=== PATIENT | male | born 1960 | race Caucasian/White ===

== ENCOUNTER 2018-02-27 23:37 | Emergency (ER) | payer MEDICAID ==
[2018-02-28] MEDS: FAMOTIDINE 20 MG INJ IV (01:12)
[2018-02-28 01:13] LABS: ADD MAN DIFF? NO
[2018-02-28] MEDS: SOD CHLORIDE 0.9% 1,000 ML IV (01:13)
[2018-02-28] MEDS: ONDANSETRON 4 MG INJ IV (01:13)
[2018-02-28] MEDS: morphine 4 MG/ML VIAL IV (01:13)
[2018-02-28 01:17] LABS: WHITE BLOOD COUNT 12.5 10^3/ul (4.8-10.8)
[2018-02-28 01:17] LABS: BASOPHILS % 0.2 % (0.0-2.0); HEMOGLOBIN 13.2 g/dl (14.0-18.0); LYMPHOCYTES # 1.7 10^3/ul (0.8-2.9); LYMPHOCYTES % 13.3 % (15.0-51.0); MEAN CORPUSCULAR HEMOGLOBIN 33.4 pg (29.0-33.0); MEAN CORPUSCULAR VOLUME 101.3 fl (82.0-101.0); MEAN PLATELET VOLUME 11.6 fl (7.4-10.4); MONOCYTE # 0.7 10^3/ul (0.3-0.9); MONOCYTES % 5.4 % (0.0-11.0); NEUTROPHIL # 10.1 10^3/ul (1.6-7.5); NEUTROPHILS % 80.6 % (39.0-77.0); PLATELET COUNT 127 10^3/UL (140-415); RED BLOOD COUNT 3.95 10^6/ul (4.70-6.10); RED CELL DISTRIBUTION WIDTH 13.1 % (11.5-14.5)
[2018-02-28] MEDS: THIAMINE 100 MG TAB PO (01:29)
[2018-02-28] MEDS: FOLIC ACID 1 MG TAB PO (01:29)
[2018-02-28 01:53] LABS: ALANINE AMINOTRANSFERASE 76 IU/L (13-69); ALBUMIN 4.7 g/dl (3.3-4.9); ALBUMIN/GLOBULIN RATIO 1.17; ALKALINE PHOSPHATASE 98 IU/L (42-121); ANION GAP 29 (8-16); ASPARTATE AMINO TRANSFERASE 67 IU/L (15-46); BILIRUBIN,INDIRECT 0.9 mg/dl (0-1.1); BILIRUBIN,TOTAL 0.9 mg/dl (0.2-1.3); BLOOD UREA NITROGEN 28 mg/dl (7-20); CALCIUM 9.2 mg/dl (8.4-10.2); CARBON DIOXIDE 17 mmol/L (21-31); CHLORIDE 97 mmol/L (97-110); CREATININE 1.08 mg/dl (0.61-1.24); GLUCOSE 337 mg/dl (70-220); LIPASE 315 U/L (23-300); POTASSIUM 5.5 mmol/L (3.5-5.1); SODIUM 137 mmol/L (135-144); TOTAL PROTEIN 8.7 g/dl (6.1-8.1)
[2018-02-28 02:37] LABS: MODE ROOM AIR; MetHgb Venous 0.3 %; Sample Type Blood venous; Site VENOUS LINE; URINE BLOOD (Dip) POC 2+ (NEGATIVE); URINE KETONES (Dip) POC 4+ (NEGATIVE); URINE LEUKOCYTE EST (Dip) POC Negative (NEGATIVE); URINE NITRITE (Dip) POC Negative (NEGATIVE); URINE TOTAL PROTEIN POC 3+ (NEGATIVE); Venous COHb 0.4 %; Venous Fraction OxyHgb 54.3 %; Venous Oxygen Sat 54.7 mmHG (55.0-75.0); Venous Total Hemglobin 13.6 g/dl
[2018-02-28 02:37] LABS: URINE PH (Dip) POC 5.5 (5.0-8.5)
[2018-02-28] MEDS: LACTATED RINGER'S 1,000 ML IV (02:39)
[2018-02-28] MEDS: DEXTROSE 5%-0.45% NACL 500 ML BAG IV (03:00)
[2018-02-28] MEDS: INSULIN LISPRO 100 UNIT/ML VIAL SC (03:00)
== END 2018-02-28 05:43 | disposition home or self-care (01) ==
LOC: E/R 23:37
DX: F10.19 Alcohol abuse with unspecified alcohol-induced disorder (principal); E87.2 Acidosis; E11.65 Type 2 diabetes mellitus with hyperglycemia; I10 Essential (primary) hypertension; Z79.82 Long term (current) use of aspirin; Z79.84 Long term (current) use of oral hypoglycemic drugs
CPT/HCPCS: 36415; 74176; 76705; 80053; 81003; 82803; 82962; 83690; 85025; 96372; 96374; 96375; 99285-25

== ENCOUNTER 2018-03-02 16:51 | Inpatient (IN) | payer OTHER, MEDICAID ==
[2018-03-02] MEDS: SOD CHLORIDE 0.9% 2,000 ML IV (17:18)
[2018-03-02] MEDS: LACTATED RINGER'S 1,000 ML IV (17:19)
[2018-03-02] MEDS: ONDANSETRON 4 MG INJ IV (17:20)
[2018-03-02] MEDS: morphine 4 MG/ML VIAL IV (17:20)
[2018-03-02 17:36] LABS: WHITE BLOOD COUNT 8.7 10^3/ul (4.8-10.8)
[2018-03-02 17:36] LABS: ADD MAN DIFF? NO; BASOPHILS % 0.2 % (0.0-2.0); EOSINOPHILS % 0.1 % (0.0-7.0); HEMOGLOBIN 12.8 g/dl (14.0-18.0); LYMPHOCYTES # 1.5 10^3/ul (0.8-2.9); LYMPHOCYTES % 17.8 % (15.0-51.0); MEAN CORPUSCULAR HEMOGLOBIN 34.2 pg (29.0-33.0); MEAN CORPUSCULAR HGB CONC 35.6 g/dl (32.0-37.0); MEAN CORPUSCULAR VOLUME 96.3 fl (82.0-101.0); MEAN PLATELET VOLUME 11.1 fl (7.4-10.4); MONOCYTE # 0.7 10^3/ul (0.3-0.9); MONOCYTES % 8.5 % (0.0-11.0); NEUTROPHIL # 6.3 10^3/ul (1.6-7.5); NEUTROPHILS % 72.9 % (39.0-77.0); PLATELET COUNT 118 10^3/UL (140-415); RED BLOOD COUNT 3.74 10^6/ul (4.70-6.10)
[2018-03-02 17:48] LABS: ADD UMIC YES; UR ASCORBIC ACID 40 mg/dL (NEGATIVE); UR BILIRUBIN (Dip) NEGATIVE (NEGATIVE); UR BLOOD (Dip) NEGATIVE (NEGATIVE); UR CLARITY CLOUDY (CLEAR); UR COLOR AMBER (YELLOW); UR GLUCOSE (Dip) 3+ mg/dL (NEGATIVE); UR KETONES (Dip) 1+ mg/dL (NEGATIVE); UR LEUKOCYTE ESTERASE (Dip) NEGATIVE Leu/ul (NEGATIVE); UR MUCUS FEW /HPF (NONE SEEN); UR NITRITE (Dip) NEGATIVE (NEGATIVE); UR RBC 1 /HPF (0-5); UR TOTAL PROTEIN (Dip) 2+ mg/dl (NEGATIVE); UR UROBILINOGEN (Dip) NEGATIVE (NEGATIVE); UR WBC 1 /HPF (0-5)
[2018-03-02 17:54] LABS: LACTIC ACID 1.5 mmol/L (0.5-2.0)
[2018-03-02 17:55] LABS: ALANINE AMINOTRANSFERASE 51 IU/L (13-69); ALBUMIN 4.6 g/dl (3.3-4.9); ALBUMIN/GLOBULIN RATIO 1.24; ALKALINE PHOSPHATASE 88 IU/L (42-121); ANION GAP 25 (8-16); ASPARTATE AMINO TRANSFERASE 45 IU/L (15-46); BILIRUBIN,INDIRECT 0.8 mg/dl (0-1.1); BILIRUBIN,TOTAL 0.8 mg/dl (0.2-1.3); BLOOD UREA NITROGEN 29 mg/dl (7-20); CALCIUM 9.7 mg/dl (8.4-10.2); CARBON DIOXIDE 18 mmol/L (21-31); CHLORIDE 92 mmol/L (97-110); CREATININE 1.16 mg/dl (0.61-1.24); GLUCOSE 282 mg/dl (70-220); LIPASE 122 U/L (23-300); POTASSIUM 4.2 mmol/L (3.5-5.1); SODIUM 131 mmol/L (135-144); TOTAL PROTEIN 8.3 g/dl (6.1-8.1)
[2018-03-02] MEDS: INSULIN HUMAN REGULAR 100 UNIT in SOD CHLORIDE 0.9% 99 ML IV ×2 (18:18→23:31)
[2018-03-02] MEDS ORDERED: DEXTROSE 50% 50 ML SYRINGE IV ×4 (19:00→23:30)
[2018-03-02] MEDS ORDERED: ACETAMINOPHEN 650MG/20.3ML CUP PO (19:00)
[2018-03-02] MEDS ORDERED: ALBUTEROL/IPRATROPIUM (NEB) 3 ML AMP NEB (19:00)
[2018-03-02] MEDS ORDERED: DOCUSATE SODIUM 100 MG CAP PO (19:00)
[2018-03-02] MEDS ORDERED: MAGNESIUM HYDROXIDE 30ML CUP PO (19:00)
[2018-03-02] MEDS ORDERED: INSULIN HUMAN REGULAR 100 UNIT in SOD CHLORIDE 0.9% 99 ML IV (19:00)
[2018-03-02] MEDS: ACCU-CHEK XX ×5 (19:21→23:02)
[2018-03-02] MEDS ORDERED: POTASSIUM CHLORIDE 20 MEQ in SOD CHLORIDE 0.45% 1,000 ML IV (19:30)
[2018-03-02] MEDS ORDERED: SOD CHLORIDE 0.45% 1,000 ML IV (19:30)
[2018-03-02 19:55] LABS: HEMOGLOBIN A1C 9.1 % (0-5.9)
[2018-03-02 20:14] LABS: B-TYPE NATRIURETIC PEPTIDE 128 PG/ML (0-125)
[2018-03-02 20:20] LABS: LACTIC ACID 1.6 mmol/L (0.5-2.0)
[2018-03-02 20:28] LABS: ANION GAP 19 (8-16); BLOOD UREA NITROGEN 26 mg/dl (7-20); CARBON DIOXIDE 22 mmol/L (21-31); CHLORIDE 96 mmol/L (97-110); CREATININE 0.92 mg/dl (0.61-1.24); GLUCOSE 189 mg/dl (70-220); POTASSIUM 4.4 mmol/L (3.5-5.1); SODIUM 133 mmol/L (135-144)
[2018-03-02] MEDS: DEXTROSE 5%-0.9% NACL 1,000 ML IV (20:36)
[2018-03-02] MEDS: LABETALOL HCL 20MG INJ IV (21:05)
[2018-03-02 22:12] LABS: LACTIC ACID 1.7 mmol/L (0.5-2.0)
[2018-03-02 22:21] LABS: ANION GAP 16 (8-16); BLOOD UREA NITROGEN 22 mg/dl (7-20); CALCIUM 8.8 mg/dl (8.4-10.2); CARBON DIOXIDE 24 mmol/L (21-31); CHLORIDE 100 mmol/L (97-110); CREATININE 0.88 mg/dl (0.61-1.24); GLUCOSE 68 mg/dl (70-220); POTASSIUM 3.5 mmol/L (3.5-5.1); SODIUM 136 mmol/L (135-144)
[2018-03-02] MEDS: 1/2 NS + KCL 20 MEQ 1,000 ML IV (23:02)
[2018-03-02] MEDS: hydrALAzine 20 MG INJ IV (23:27)
[2018-03-03] MEDS: ACCU-CHEK XX ×9 (00:02→08:03)
[2018-03-03] MEDS: D5-0.2 NACL + KCL 20 MEQ 1,000 ML IV ×2 (00:45→07:00)
[2018-03-03] MEDS: HYDROCODONE/APAP (5/325) TAB PO ×2 (00:50→09:49)
[2018-03-03 01:18] LABS: ANION GAP 16 (8-16); BLOOD UREA NITROGEN 20 mg/dl (7-20); CALCIUM 8.9 mg/dl (8.4-10.2); CARBON DIOXIDE 23 mmol/L (21-31); CHLORIDE 100 mmol/L (97-110); GLUCOSE 182 mg/dl (70-220); SODIUM 135 mmol/L (135-144)
[2018-03-03 05:16] LABS: ADD MAN DIFF? NO
[2018-03-03 05:19] LABS: WHITE BLOOD COUNT 7.3 10^3/ul (4.8-10.8)
[2018-03-03 05:20] LABS: ABNORMAL IP MESSAGE 1; BASOPHILS % 0.1 % (0.0-2.0); EOSINOPHILS % 0.4 % (0.0-7.0); HEMATOCRIT 31.5 % (42.0-52.0); HEMOGLOBIN 11.4 g/dl (14.0-18.0); LYMPHOCYTES # 2.1 10^3/ul (0.8-2.9); LYMPHOCYTES % 28.3 % (15.0-51.0); MEAN CORPUSCULAR HEMOGLOBIN 34.2 pg (29.0-33.0); MEAN CORPUSCULAR HGB CONC 36.2 g/dl (32.0-37.0); MEAN CORPUSCULAR VOLUME 94.6 fl (82.0-101.0); MEAN PLATELET VOLUME 11.3 fl (7.4-10.4); MONOCYTE # 0.7 10^3/ul (0.3-0.9); MONOCYTES % 9.9 % (0.0-11.0); NEUTROPHIL # 4.5 10^3/ul (1.6-7.5); NEUTROPHILS % 60.9 % (39.0-77.0); PLATELET COUNT 88 10^3/UL (140-415); POSITIVE DIFF @See below; RED BLOOD COUNT 3.33 10^6/ul (4.70-6.10); RED CELL DISTRIBUTION WIDTH 12.1 % (11.5-14.5)
[2018-03-03 05:42] LABS: CHLORIDE 101 mmol/L (97-110); POTASSIUM 3.5 mmol/L (3.5-5.1); SODIUM 136 mmol/L (135-144)
[2018-03-03 06:14] LABS: ANION GAP 15 (8-16); BLOOD UREA NITROGEN 17 mg/dl (7-20); CALCIUM 8.9 mg/dl (8.4-10.2); CARBON DIOXIDE 24 mmol/L (21-31); CREATININE 0.79 mg/dl (0.61-1.24); GLUCOSE 88 mg/dl (70-220)
[2018-03-03] MEDS: LEVOTHYROXINE 137 MCG TAB PO (06:32)
[2018-03-03 06:54] LABS: PHOSPHORUS 2.4 mg/dl (2.5-4.9)
[2018-03-03 08:29] LABS: ANION GAP 15 (8-16); BLOOD UREA NITROGEN 16 mg/dl (7-20); CALCIUM 9.2 mg/dl (8.4-10.2); CARBON DIOXIDE 24 mmol/L (21-31); CHLORIDE 101 mmol/L (97-110); CREATININE 0.79 mg/dl (0.61-1.24); GLUCOSE 150 mg/dl (70-220); POTASSIUM 3.6 mmol/L (3.5-5.1); SODIUM 136 mmol/L (135-144)
[2018-03-03] MEDS: LISINOPRIL 20 MG TAB PO (08:33)
[2018-03-03] MEDS: ATENOLOL 100 MG TAB PO (08:33)
[2018-03-03] MEDS: ENOXAPARIN 40 MG/0.4 ML SYG SC (08:36)
[2018-03-03] MEDS: PANTOPRAZOLE 40 MG INJ IV (09:30)
[2018-03-03] MEDS ORDERED: GLUCOSE GEL 15 GRAM TUBE BUCCAL (09:30)
[2018-03-03] MEDS ORDERED: GLUCAGON 1 MG INJ IM (09:30)
[2018-03-03] MEDS ORDERED: DEXTROSE 50% 50 ML SYRINGE IV ×2 (09:30)
[2018-03-03] MEDS ORDERED: GLUCOSE GEL 15 GRAM TUBE PO ×2 (09:30)
[2018-03-03] MEDS: HYPOGLYCEMIA PROTOCOL when Glucose is <70 mg/dL or symptomatic <90 mg/dL. XX (09:52)
[2018-03-03] MEDS: Discontinue current oral sulfonylureas (glyburide, glipizide, and/or glimepiride) prior to XX (09:52)
[2018-03-03] MEDS: INSULIN GLARGINE [LANtus] 3 ML PEN SC (10:18)
[2018-03-03] MEDS ORDERED: INSULIN ASPART [NOVOLOG] 3 ML PEN SC ×2 (11:30)
[2018-03-03 11:59] LABS: ANION GAP 15 (8-16); BLOOD UREA NITROGEN 16 mg/dl (7-20); CALCIUM 8.9 mg/dl (8.4-10.2); CARBON DIOXIDE 26 mmol/L (21-31); CHLORIDE 98 mmol/L (97-110); CREATININE 0.82 mg/dl (0.61-1.24); GLUCOSE 148 mg/dl (70-220); POTASSIUM 3.8 mmol/L (3.5-5.1); SODIUM 135 mmol/L (135-144)
[2018-03-04] MEDS ORDERED: ACCU-CHEK XX (02:00)
[2018-03-04] MEDS ORDERED: PANTOPRAZOLE 40 MG INJ IV (06:00)
[2018-03-04] MEDS ORDERED: INSULIN GLARGINE [LANtus] 3 ML PEN SC (08:00)
[2018-03-04 17:32] LABS: CREATININE, RANDOM URINE 159 mg/dL (20-370); MICROALBUMIN 49.9 mg/dL; MICROALBUMIN/CREATININE RATIO 314 (<30)
== END 2018-03-03 12:45 | disposition left against medical advice (07) | DRG 639 ==
LOC: E/R 16:51 → ICU 18:58
DX: E11.10 Type 2 diabetes mellitus with ketoacidosis without coma (principal); I10 Essential (primary) hypertension; E03.9 Hypothyroidism, unspecified; Z79.84 Long term (current) use of oral hypoglycemic drugs
CPT/HCPCS: 36415; 71045; 80048; 80053; 81001; 82043; 82962; 83036; 83605; 83690; 83880; 84100; 84443; 85025; 87081; 96374; 96375; 99291-25